=== PATIENT | male | born 1950 | race Caucasian/White ===

== ENCOUNTER 2017-04-07 18:41 | Observation (INO) | payer OTHER ==
[~2017-04-07] VITALS: Ht 157.5 cm; Wt 83.8 kg
[~2017-04-07 18:41] MED LIST: ASPIRIN81 M1 PO; COQ-10100 MG PO; DOXAZOSIN MESYLA8 MG PO; FLONASE ALLERG9.9 ML BOTH NARES; LIPITOR40 MG PO; METAXALONE800 MG PO; METOPROLOL ER PO; NEXIUM 24HR20 MG PO; NITROSTAT,NITR0.4 M1 SL; PEPCID AC20 MG PO; PLAVIX75 MG PO; PRINIVIL10 MG PO; VIAGRA50 MG PO; VITAMIN D35000 UNIT PO; ZESTRIL,PRINIVIL5 MG PO
[2017-04-07 19:23] LABS: HEMATOCRIT 41.5 % (38.0-50.0); HEMOGLOBIN 14.6 G/DL (12.5-16.6); MCH 30.9 PG (29.0-34.0); MCHC 35.2 G/DL (30.0-36.0); MCV 87.7 FL (86-99); PLATELET COUNT 218 K/uL (156-360); RBC DIS.WIDTH-CV 12.3 % (11.8-14.6); RBC DIS.WIDTH-SD 39.3 % (39-53); RED BLOOD COUNT 4.73 M/uL (4.00-5.50); WHITE BLOOD COUNT 12.2 K/uL (4.1-10.2)
[2017-04-07 19:34] LABS: CHLORIDE 102 mEq/L (99-109); POTASSIUM 3.9 mEq/L (3.7-5.4); SODIUM 137 mEq/L (136-147)
[2017-04-07 19:36] LABS: GLUCOSE 111 mg/dL (70-99)
[2017-04-07 19:40] LABS: CREATININE 0.9 mg/dL (0.6-1.3); GFR ESTIMATE (CALCULATED) > 59 mL/min/ (58.99-99999); UREA NITROGEN (BUN) 15 mg/dL (9-23)
[2017-04-07 19:47] LABS: TROP-I INTERPRETATION NEGATIVE; TROPONIN-I < 0.01 ng/mL (0.0-0.30)
[2017-04-07 21:36] LABS: SERUM ETHYL ALCOHOL < 10 mg/dL
[2017-04-07 23:28] VITALS: BP 120/65
[2017-04-08] MEDS ORDERED: ACID CONTROL150 MG PO (00:44)
[2017-04-08] MEDS ORDERED: VITAMIN B-6100 MG PO (00:46)
[2017-04-08] MEDS ORDERED: PROAIR HFA8.5 GM AEROSOL (00:48)
[2017-04-08 02:59] LABS: TROP-I INTERPRETATION NEGATIVE; TROPONIN-I < 0.01 ng/mL (0.0-0.30)
[2017-04-08 04:06] VITALS: BP 145/68
[2017-04-08 05:21] LABS: BENZODIAZEPINES, URINE SCREEN Negative (200 ng/mL)
[2017-04-08 08:07] VITALS: BP 126/87
[2017-04-08 09:12] LABS: Estimated Average Glucose 117 mg/dL (70-123); HEMOGLOBIN A1c (GLYCOHEMOGLOB) 5.7 % HGB (Below 5.7)
[2017-04-08 09:26] LABS: TROP-I INTERPRETATION NEGATIVE; TROPONIN-I < 0.01 ng/mL (0.0-0.30)
[2017-04-08 09:31] LABS: HDL CHOLESTEROL 40 MG/DL (Desirable>=40); LDL CHOLESTEROL 24 mg/dL (Desirable<100); NON-HDL CHOLESTEROL 75 mg/dL (Desirable<160); TOTAL CHOLESTEROL 115 mg/dL (Desirable<200); TRIGLYCERIDES 257 MG/DL (Normal: <150)
== END 2017-04-08 14:44 | disposition home or self-care (01) ==
LOC: EME 18:41 → EDOF 20:49 → 5WEST 20:49 → ENRESERV 21:01 → 5WEST 23:18
PROVIDERS: Emergency Medicine; Physician Assistant Medical
DX: R42 Dizziness and giddiness (principal); R07.9 Chest pain, unspecified; I49.3 Ventricular premature depolarization; I10 Essential (primary) hypertension; K21.9 Gastro-esophageal reflux disease without esophagitis; I25.10 Atherosclerotic heart disease of native coronary artery without angina pectoris; I25.2 Old myocardial infarction; Z95.5 Presence of coronary angioplasty implant and graft; I65.23 Occlusion and stenosis of bilateral carotid arteries; E78.2 Mixed hyperlipidemia; G89.29 Other chronic pain; M54.5 Low back pain; Z68.33 Body mass index [BMI] 33.0-33.9, adult; E66.9 Obesity, unspecified; Z87.891 Personal history of nicotine dependence; Z82.49 Family history of ischemic heart disease and other diseases of the circulatory system; Z79.82 Long term (current) use of aspirin
CPT/HCPCS: 70450; 70551; 71020; 80048; 80061; 80306 90; 83036; 84484; 85027; 93005; 93880; 99281; 99285; G0378; G0480; J1650; J7030